=== PATIENT | male | born 1970 | race Caucasian/White ===

== ENCOUNTER 2023-11-11 19:21 | Emergency (ER) | payer OTHER ==
[~2023-11-11 19:21] MED LIST: LIB25C PO
== END 2023-11-11 20:01 | disposition left against medical advice (07) ==
LOC: ER 19:22
DX: K08.89 Other specified disorders of teeth and supporting structures (principal); Z53.21 Procedure and treatment not carried out due to patient leaving prior to being seen by health care provider